=== PATIENT | female | born 1980 | race African-American/Black ===

== ENCOUNTER 2017-05-17 19:34 | Emergency (ER) | payer MEDICAID ==
[~2017-05-17] VITALS: Ht 182.9 cm; Wt 99.8 kg
[2017-05-17 19:50] VITALS: BP 171/108
== END 2017-05-17 22:30 | disposition left against medical advice (07) ==
LOC: ER 19:37
DX: R11.2 Nausea with vomiting, unspecified (principal); R10.9 Unspecified abdominal pain; Z53.21 Procedure and treatment not carried out due to patient leaving prior to being seen by health care provider

== ENCOUNTER 2017-10-18 13:40 | Emergency (ER) | payer SELFPAY ==
[~2017-10-18] VITALS: Ht 182.9 cm; Wt 99.8 kg
[2017-10-18] MEDS ORDERED: MORPHINE SULFATE 4 MG/ML SYRG IM ONE (15:00)
[2017-10-18] MEDS ORDERED: ONDANSETRON ODT 4 MG TAB PO ONE (15:00)
[2017-10-18] MEDS ORDERED: BACITRACIN TOP OINT 1 UD PKG TOP ONE (16:59)
[2017-10-18] MEDS ORDERED: HYDROcodone-ACET 10/325MG TAB PO ONE (17:15)
[2017-10-18 17:55] VITALS: BP 132/88
== END 2017-10-18 17:56 | disposition home or self-care (01) ==
LOC: EDBD 13:40 → ER 13:40
DX: S62.602A Fracture of unspecified phalanx of right middle finger, initial encounter for closed fracture (principal); S62.604A Fracture of unspecified phalanx of right ring finger, initial encounter for closed fracture; V86.59XA Driver of other special all-terrain or other off-road motor vehicle injured in nontraffic accident, initial encounter; Y93.89 Activity, other specified; Y99.8 Other external cause status; Y92.89 Other specified places as the place of occurrence of the external cause
CPT/HCPCS: 26742; 72110; 72170; 73130; 96372; 99152; 99285; J2270; Q0162

== ENCOUNTER 2019-02-15 10:46 | Emergency (ER) | payer SELFPAY ==
[~2019-02-15] VITALS: Ht 182.9 cm; Wt 112.5 kg
[2019-02-15 13:12] VITALS: BP 149/95
== END 2019-02-15 13:14 | disposition home or self-care (01) ==
LOC: ER 10:53
DX: M54.41 Lumbago with sciatica, right side (principal); I10 Essential (primary) hypertension

== ENCOUNTER 2019-06-30 09:20 | Emergency (ER) | payer SELFPAY ==
[~2019-06-30] VITALS: Ht 182.9 cm; Wt 115.2 kg
[2019-06-30 09:43] VITALS: BP 138/100
[2019-06-30] MEDS ORDERED: EPINEPHrine HCL 1 MG/1 ML AMP SC ONE (11:00)
[2019-06-30] MEDS ORDERED: methylPREDNISolone SOD SUCC 125 MG/2 ML VL IM ONE (11:00)
== END 2019-06-30 11:17 | disposition home or self-care (01) ==
LOC: ER 09:21
DX: T78.40XA Allergy, unspecified, initial encounter (principal); I10 Essential (primary) hypertension; X58.XXXA Exposure to other specified factors, initial encounter
CPT/HCPCS: 96372; 99283; J0171; J2930

== ENCOUNTER 2019-07-19 06:39 | Emergency (ER) | payer MEDICAID ==
[~2019-07-19] VITALS: Ht 182.9 cm; Wt 111.1 kg
[2019-07-19 07:18] VITALS: BP 129/89
== END 2019-07-19 07:48 | disposition home or self-care (01) ==
LOC: ER 06:43
DX: J03.90 Acute tonsillitis, unspecified (principal); I10 Essential (primary) hypertension

== ENCOUNTER 2019-10-06 07:36 | Emergency (ER) | payer MEDICAID ==
[~2019-10-06] VITALS: Ht 182.9 cm; Wt 109.8 kg
[2019-10-06 07:58] VITALS: BP 140/91
[2019-10-06] MEDS ORDERED: IBUPROFEN 800 MG TAB PO ONE (09:00)
== END 2019-10-06 09:03 | disposition home or self-care (01) ==
LOC: ER 07:37
DX: M76.62 Achilles tendinitis, left leg (principal); M77.32 Calcaneal spur, left foot; I10 Essential (primary) hypertension
CPT/HCPCS: 73630